=== PATIENT | female | born 1960 | race Caucasian/White ===

== ENCOUNTER 2019-02-16 13:56 | Emergency (ER) | payer SELFPAY ==
[~2019-02-16] VITALS: Wt 80.0 kg
[2019-02-16 14:02] VITALS: BP 149/98; PULSE 81; RESP 18
== END 2019-02-16 18:45 | disposition left against medical advice (07) ==
LOC: E/R 13:56
DX: Z53.21 Procedure and treatment not carried out due to patient leaving prior to being seen by health care provider (principal)
CPT/HCPCS: 93005